=== PATIENT | female | born 1945 | race Caucasian/White ===

== ENCOUNTER 2019-02-08 06:54 | Day surgery (SDC) | payer MEDICARE ==
[~2019-02-08 06:54] MED LIST: Acetaminophen TAB* 325 MG PO PRN; Buffered Lidocaine 1% SYRIN* 1 ML/SYRINGE INTRADERM ONE
[2019-02-08] MEDS ORDERED: Midazolam* 1 MG/ML 2 ML VIAL (2 MG) ONE (08:09)
--- NOTE | 2019-02-08 09:47 | OP ---
DATE OF OPERATION/DATE OF DICTATION: 02/08/2019 - [facility] DATE OF : 1945. SURGEON: Dr. Jose L Rubio. HOUSECLEANER: None. ANESTHESIA: Topical with intravenous sedation. PRE-OP DIAGNOSIS: Cataract, right eye. POST-OP DIAGNOSIS: Cataract, right eye. OPERATIVE PROCEDURE: Phacoemulsification and cataract extraction with posterior chamber intraocular lens implant, right eye. COMPLICATIONS: None. BLOOD LOSS: None. DESCRIPTION OF PROCEDURE: The patient was brought to the operating room and received a small amount of intravenous sedation. A drop of Tetracaine was placed in her right eye. She was prepped and draped in the usual sterile fashion for ophthalmic surgery and attention was directed to the right eye where a speculum was placed. A paracentesis was created at the 11 o'clock position and 0.1 cc of 1 percent preservative-free Lidocaine was injected into the anterior chamber followed by DisCoVisc. The eye was digitally stabilized while a 2.75 mm keratome was used to create a triplanar clear corneal incision at the 9 o'clock position. A continuous curvilinear capsulorrhexis was created with a cystotome and Utrata forceps. BSS on a cannula was used to hydrodissect the lens from the capsule. Phacoemulsification was performed in a divide-and- conquer technique to create four fragments which were removed. Residual cortical material was removed with irrigation and aspiration. DisCoVisc was used to inflate the capsular bag and an AUOOTO 24.0 diopter lens was folded and inserted into the capsular bag. DisCoVisc was removed using irrigation and aspiration. BSS on a cannula was used to hydrate the corneal stroma and seal the wound. At the end of the case the pupil was round and the lens was centered. The eye was of normal pressure and the wound was water tight. The speculum was removed and topical Maxitrol ointment was placed on the surface of the eye. The eye was closed, patched and shielded and the patient was sent to the recovery room in stable condition with post operative instructions and follow-up appointment given. [id number] #: [id number] MTDD
[2019-02-08 11:39] VITALS: BP 100/52
[2019-02-08] MEDS ORDERED: Lidocaine 1%* 5 ML VIAL ONE (13:53)
[2019-02-08] MEDS ORDERED: Phenylephrine OPHTH SOL 2.5%* 2 ML ONE (13:53)
[2019-02-08] MEDS ORDERED: Tetracaine 0.5% OPTH.SOL 4 ML* 1 DROP BTL ONE (13:53)
[2019-02-08] MEDS ORDERED: Tropicamide 1% OPTH.SOL* BTL ONE (13:53)
[2019-02-08] MEDS ORDERED: Ketorolac 0.5% OPHTH (NF) 0.5 % 5 ML BTL ONE (13:53)
[2019-02-08] MEDS ORDERED: Neomycin/Polymy/Dex OPHTH.OIN* 3.5 GM ONE (13:53)
[2019-02-08] MEDS ORDERED: Cyclopentolate 1% OPTH.SOL* 2 ML BTL ONE (13:53)
== END 2019-02-08 08:42 | disposition home or self-care (01) ==
LOC: OREAST 06:54
PROVIDERS: ATTEND Ophthalmology
DX: H25.12 Age-related nuclear cataract, left eye (principal); E11.8 Type 2 diabetes mellitus with unspecified complications; Z79.4 Long term (current) use of insulin; M06.9 Rheumatoid arthritis, unspecified; C95.10 Chronic leukemia of unspecified cell type not having achieved remission; N18.3 Chronic kidney disease, stage 3 (moderate); I12.9 Hypertensive chronic kidney disease with stage 1 through stage 4 chronic kidney disease, or unspecified chronic kidney disease; E03.9 Hypothyroidism, unspecified
CPT/HCPCS: A9270-GY; J2250; V2632

== ENCOUNTER 2019-02-15 10:42 | Day surgery (SDC) | payer MEDICARE ==
[2019-02-15] MEDS ORDERED: fentaNYL* 50 MCG/ML 2 ML VIAL (100 MCG VIAL) ONE (12:27)
[2019-02-15] MEDS ORDERED: Midazolam* 1 MG/ML 2 ML VIAL (2 MG) ONE (12:27)
[2019-02-15 13:25] VITALS: BP 101/69
[2019-02-15] MEDS ORDERED: Cyclopentolate 1% OPTH.SOL* 2 ML BTL ONE (13:25)
[2019-02-15] MEDS ORDERED: Tetracaine 0.5% OPTH.SOL 4 ML* 1 DROP BTL ONE (13:25)
[2019-02-15] MEDS ORDERED: Phenylephrine OPHTH SOL 2.5%* 2 ML ONE (13:25)
[2019-02-15] MEDS ORDERED: Lidocaine 1%* 5 ML VIAL ONE (13:25)
[2019-02-15] MEDS ORDERED: Neomycin/Polymy/Dex OPHTH.OIN* 3.5 GM ONE (13:25)
[2019-02-15] MEDS ORDERED: Tropicamide 1% OPTH.SOL* BTL ONE (13:25)
[2019-02-15] MEDS ORDERED: Ketorolac 0.5% OPHTH (NF) 0.5 % 5 ML BTL ONE (13:25)
--- NOTE | 2019-02-15 16:21 | OP ---
DATE OF OPERATION: 02/15/19 [facility] DATE OF : [birth year] SURGEON: Dr. Jose L Rubio. RESEARCH INVESTIGATOR: None. ANESTHESIA: Topical with intravenous sedation. PRE-OP DIAGNOSIS: Cataract, right eye. POST-OP DIAGNOSIS: Cataract, right eye. OPERATIVE PROCEDURE: Phacoemulsification and cataract extraction with posterior chamber intraocular lens implant, right eye. COMPLICATIONS: None. BLOOD LOSS: None. DESCRIPTION OF PROCEDURE: The patient was brought to the operating room and received a small amount of intravenous sedation. A drop of Tetracaine was placed in her right eye. She was prepped and draped in the usual sterile fashion for ophthalmic surgery and attention was directed to the right eye where a speculum was placed. A paracentesis was created at the 11 o'clock position and 0.1 cc of 1 percent preservative-free Lidocaine was injected into the anterior chamber followed by DisCoVisc. The eye was digitally stabilized while a 2.75 mm keratome was used to create a triplanar clear corneal incision at the 9 o'clock position. A continuous curvilinear capsulorrhexis was created with a cystotome and Utrata forceps. BSS on a cannula was used to hydrodissect the lens from the capsule. Phacoemulsification was performed in a divide-and- conquer technique to create four fragments which were removed. Residual cortical material was removed with irrigation and aspiration. DisCoVisc was used to inflate the capsular bag and an AU00T0 24.0 diopter lens was folded and inserted into the capsular bag. DisCoVisc was removed using irrigation and aspiration. BSS on a cannula was used to hydrate the corneal stroma and seal the wound. At the end of the case the pupil was round and the lens was centered. The eye was of normal pressure and the wound was water tight. The speculum was removed and topical Maxitrol ointment was placed on the surface of the eye. The eye was closed, patched and shielded and the patient was sent to the recovery room in stable condition with post operative instructions and follow-up appointment given. [id number] #: [id number] MTDGabriel
== END 2019-02-15 13:34 | disposition home or self-care (01) ==
LOC: OREAST 10:42
PROVIDERS: ATTEND Ophthalmology
DX: H25.11 Age-related nuclear cataract, right eye (principal); E11.9 Type 2 diabetes mellitus without complications; Z79.4 Long term (current) use of insulin; I10 Essential (primary) hypertension; M06.9 Rheumatoid arthritis, unspecified; C92.11 Chronic myeloid leukemia, BCR/ABL-positive, in remission
CPT/HCPCS: A9270-GY; J2250; J3010; V2632

== ENCOUNTER 2019-05-03 10:52 | Observation (INO) | payer MEDICARE ==
--- OUTSIDE RECORDS SUMMARY | 2019-05-03 11:10 | XMS REPORT | Continuity of Care Document ---
:1945 External Reference #:[id number] Author Name Ernesto Agustin, OD Address [address] [place] [address] Care Team Providers Name Role Phone Liborio Torres DO Care Team Information Branch Manager Unavailable Liborio Torres DO Primary Care Physician Unavailable Payers Date Identification Numbers Payment Provider Subscriber Policy Number: [id number] BS Medicare Felicitas Martinez PayID: [id number] [address] [address] [place] [address] Problems Active Problems Provider Date Type 2 diabetes mellitus Onset: 03/21/2015 Hypertensive retinopathy Ernesto Zaman O.D. Onset: 03/21/2015 Presbyopia Ernesto Zaman O.D. Onset: 03/21/2015 Nuclear senile cataract Ernesto Zaman O.D. Onset: 03/21/2015 Retinal drusen Ernesto Zaman O.D. Onset: 03/21/2015 Taking medication Ernesto Zaman O.D. Onset: 03/21/2015 Family History Date Family Member(s) Observation Comments General Glasses Father Cataract Father due to Natural Causes () Father Diabetes Mother Cataract Mother due to Lung Cancer () Mother Arthritis Mother Cancer Mother Diabetes Social History Type Date Description Comments Sex Unknown ETOH Use Never used alcohol Tobacco Use Start: Unknown Patient has never smoked Smoking Status Reviewed: 04/11/19 Patient has never smoked Allergies, Adverse Reactions, Alerts Description No Known Drug Allergies Medications Active Medications SIG Qnty Indications Ordering Date Provider Ketorolac Tromethamine 1 drop both eyes 10ml Ernesto Agustin, 04/11/2019 0.5% tid x 3 weeks OD Solution Prednisolone Acetate 1 drop tid OU x 3 10ml Ernesto Agustin, 04/11/2019 1% weeks, then taper OD Suspension as directed Fluorometholone 1gtt three times 10ml Ernesto Agustin, 03/25/2019 0.1% a day both eyes x OD Suspension 1 week, then twice per day x 1 week Lantus Solostar Unknown 100Unit/ML Solution Pen-Inject Humalog Kwikpen Unknown 100Unit/ML Solution Pen-Inject Levothyroxine Sodium Unknown 75mcg Tablets Furosemide Unknown 40mg Tablets Folic Acid Unknown 1mg Tablets Fluoxetine HCL Unknown 20mg Capsules Clonidine HCL Unknown 0.3mg Tablets Atorvastatin Calcium Unknown 20mg Tablets Gleevec Unknown 400mg Tablets Amlodipine Besylate Unknown 10mg Tablets History Medications Vigamox 1 drop left eye 3ml Jose L Rubio, 01/26/2019 - 0.5% Solution four times a M.D. 02/22/2019 day, start drops morning of surgery Ketorolac Tromethamine 1 drops left eye 5ml Jose L Rubio, 01/26/2019 - 0.5% twice a day M.D. 03/25/2019 Solution Pred Forte 1 drops left eye 10ml Jose L Rubio, 01/26/2019 - 1% Suspension four times a day M.D. 03/25/2019 Vigamox 1 drop right eye 3ml Jose L Rubio, 01/26/2019 - 0.5% Solution four times a M.D. 02/22/2019 day, start drops the morning of surgery Ketorolac Tromethamine 1 drops right 5ml Jose L Rubio, 01/26/2019 - 0.5% eye twice a day M.D. 03/25/2019 Solution Pred Forte 1 drops right 10ml Jose L Rubio, 01/26/2019 - 1% Suspension eye four times a M.D. 03/25/2019 day Hydroxychloroquine Sulfate Unknown - 200mg 12/30/2018 Tablets Methotrexate Unknown - 2.5mg Tablets 01/17/2019 Vital Signs Date Vital Result Comment 04/11/2019 11:47am Intraocular Pressure Right Eye 18 mmHg Intraocular Pressure Left Eye 16 mmHg 03/25/2019 11:08am Intraocular Pressure Right Eye 18 mmHg Intraocular Pressure Left Eye 18 mmHg 02/22/2019 8:42am Intraocular Pressure Right Eye 18 mmHg Intraocular Pressure Left Eye 18 mmHg 2019 9:48am Intraocular Pressure Right Eye 18 mmHg Intraocular Pressure Left Eye 17 mmHg 02/09/2019 10:00am Intraocular Pressure Left Eye 18 mmHg 01/17/2019 8:44am Intraocular Pressure Right Eye 16 mmHg Intraocular Pressure Left Eye 16 mmHg 12/30/2018 8:55am Intraocular Pressure Right Eye 16 mmHg Intraocular Pressure Left Eye 16 mmHg 03/21/2015 9:55am Intraocular Pressure Right Eye 18 mmHg Intraocular Pressure Left Eye 18 mmHg Results Test Date Facility Test Result H/L Range Note Laboratory test 02/15/2019 [facility] Point of Care 155 mg/dL High 70-100 [address] [address] [phone] Laboratory test 02/08/2019 [facility] Point of Care 113 mg/dL High 70-100 [address] [place] [address] [phone] 1 Supply Chain Procurement Manager: [id number] Supply Chain Procurement Manager: [id number] Procedures Date Code Description Status 02/15/2019 72749 Extracapsular Cataract Extraction W/Intraocular Lens Completed 02/08/2019 41149 Extracapsular Cataract Extraction W/Intraocular Lens Completed 01/17/2019 99423 Ophthalmic Biometry By Partial Coherence Interferometry Completed W/Intra 01/17/2019 51859 Eye Exam Est Intermediate Completed 12/30/2018 75659 Oct Retina Completed 12/30/2018 41073 Eye Exam New Comprehensive Completed 03/21/2015 80796 Fundus Photography W/Interpretation & Report Completed 03/21/2015 85967 Ophthalmoscopy Initial Completed 03/21/2015 41545 Refraction Completed 03/21/2015 75596 Eye Exam New Comprehensive Completed Plan of Treatment Future Appointment(s):05/03/2019 8:30 am - Ernesto Agustin, OD at [facility] Hszckv5505/2019 - Ernesto Agustin, [id number] Cystoid macular edema following cataract surgery, [id number] Other chronic allergic conjunctivitisFollow up:3 weeks mac OCT, sooner PRN
--- OUTSIDE RECORDS SUMMARY | 2019-05-03 11:10 | XMS REPORT | Continuity of Care Document ---
:1945 External Reference #:[id number] Author Name Ernesto Agustin, OD Address [address] [place] [address] Care Team Providers Name Role Phone Liborio Torres DO Care Team Information Technical Stenographer Unavailable Liborio Torres DO Primary Care Physician Unavailable Payers Date Identification Numbers Payment Provider Subscriber Policy Number: [id number] BS Medicare Felicitas Martinez PayID: [id number] [address] [address] [place] [address] Problems Active Problems Provider Date Type 2 [...] Patient has never smoked Smoking Status Reviewed: 05/02/19 Patient has never smoked Allergies, Adverse Reactions, Alerts Description No Known Drug Allergies Medications Active Medications SIG Qnty Indications Ordering Provider Date Ketorolac Tromethamine 1 drop both eyes 10ml Ernesto Agustin, OD 04/11/2019 0.5% tid x 3 weeks Solution Prednisolone Acetate 1 drop tid OU x 3 10ml Ernesto Agustin, OD 04/11/2019 1% weeks, then taper Suspension as directed Aracelis Tejeda Unknown 100Unit/ML Solution Pen-Inject Humalog Kwikpen Unknown 100Unit/ML Solution Pen-Inject Levothyroxine Sodium Unknown 75mcg Tablets Furosemide Unknown 40mg Tablets Folic Acid Unknown 1mg Tablets Fluoxetine HCL Unknown 20mg Capsules Clonidine HCL Unknown 0.3mg Tablets Atorvastatin Calcium Unknown 20mg Tablets Gleevec Unknown 400mg Tablets Amlodipine Besylate Unknown 10mg Tablets History Medications Fluorometholone 1gtt three times 10ml Ernesto Agustin, 03/25/2019 - 0.1% Suspension a day both eyes OD 05/03/2019 x 1 week, then twice per day x 1 week Vigamox 1 drop left eye 3ml Jose [...] 01/17/2019 Vital Signs Date Vital Result Comment 05/03/2019 9:28am Intraocular Pressure Right Eye 16 mmHg Intraocular Pressure Left Eye 16 mmHg 04/11/2019 11:47am Intraocular Pressure Right Eye 18 [...] Result H/L Range Note Laboratory test 02/15/2019 [facility] Point of Care 155 mg/dL High 70-100 [address] [place] [address] [phone] Laboratory test 02/08/2019 [facility] Point of Care 113 mg/dL High 70-100 [address] [place] [address] [phone] 1 Editor Dictionary: [id number] 2 Editor Dictionary: [id number] Procedures Date Code Description Status 05/03/2019 77614 Oct, Optic Nerve Completed 05/03/2019 24799 Eye Exam Est Intermediate Completed 02/15/2019 56333 Extracapsular Cataract Extraction W/Intraocular Lens Completed 02/08/2019 06865 Extracapsular Cataract Extraction W/Intraocular Lens Completed 01/17/2019 58354 Ophthalmic Biometry By Partial Coherence Interferometry Completed W/Intra 01/17/2019 60147 Eye Exam Est Intermediate Completed 12/30/2018 76811 Oct Retina Completed 12/30/2018 46233 Eye Exam New Comprehensive Completed 03/21/2015 02793 Fundus Photography W/Interpretation & Report Completed 03/21/2015 73824 Ophthalmoscopy Initial Completed 03/21/2015 72793 Refraction Completed 03/21/2015 55322 Eye Exam New Comprehensive Completed
[2019-05-03 12:26] LABS: ABS Eosinophils 0.2 10^3/ul (0-0.6); ABS Lymphocytes 1.7 10^3/ul (1.0-4.8); ABS Monocytes 0.4 10^3/ul (0-0.8); ABS Neutrophils 4.5 10^3/ul (1.5-7.7); Eosinophil % 2.8 %; Hematocrit 37 % (35-47); Hemoglobin 12.3 g/dL (12.0-16.0); Lymphocyte % 25.3 %; Mean Corpuscular HGB Conc 33 g/dL (31-36); Mean Corpuscular Hemoglobin 30 pg (27-31); Mean Corpuscular Volume 89 fL (80-97); Mean Platelet Volume 7.7 fL (7.4-10.4); Platelet Count 200 10^3/uL (150-450); Red Blood Count 4.19 10^6 /uL (3.70-4.87); Red Cell Distribution Width 16 % (10-15); White Blood Count 6.9 10^3/uL (3.5-10.8)
[2019-05-03 12:48] LABS: Albumin 3.9 g/dL (3.2-5.2); Albumin/Globulin Ratio 1.4 (1-3); BUN/Creatinine Ratio 16.8 (8-20); EGFR African American 64.8 (>60); EGFR Non-African American 53.6 (>60); Globulin 2.7 g/dL (2-4); Total Bilirubin 0.8 mg/dL (0.2-1.0); Total Protein 6.6 g/dL (6.4-8.9)
[2019-05-03] MEDS ORDERED: Iodixanol* (CONTRAST) 320 MG/ML 100 ML SDV IV ONE (12:58)
--- NOTE | 2019-05-03 13:40 | ED ---
Progress - Progress Note Progress Note: Ultrasound guided IV placement at 13:36 20 gauge on right AC Course/Dx - Diagnoses Provider Diagnoses: Papilledema due to raised intracranial pressure Discharge - Sign-Out/Discharge Documenting (check all that apply): Patient Departure Patient Received Moderate/Deep Sedation with Procedure: No - Discharge Plan Condition: Stable Disposition: ADMITTED TO [facility] Referrals: No Primary Care Phys,NOPCP [Primary Care Provider] - - Billing Disposition and Condition Condition: STABLE Disposition: Admitted to [facility] - Attestation Statements Document Initiated by Scribe: Yes Documenting Scribe: Riri Santos Provider For Whom Kenrickibe is Documenting (Include Credential): Giselle Oliveira MD Scribe Attestation: Riri Traore, scribed for Giselle Oliveira MD on 05/03/19 at 1718. Scribe Documentation Reviewed: Yes Provider Attestation: The documentation as recorded by the Riri harry accurately reflects the service I personally performed and the decisions made by me, Giselle Oliveira MD Status of Scribe Document: Viewed
[2019-05-03 14:11] LABS: INR 0.97 (0.82-1.09)
--- NOTE | 2019-05-03 14:20 | ED ---
Throat Pain/Nasal Congestion - HPI Summary HPI Summary: Pt. is a 74 y.o female who was referred to the ER by Dr. Agustin, ophthalmology, for evaluation of papilledema. Pt. states she was seeing her eye doctor today for a follow up and was found to have an abnormal exam. Pt. denies vision change , headache, numbness, tingling, weakness. Pt. states she feels at her baseline without complaints. Past hx of HTN and DM. Sxs are moderate in severity. No current modifying factors. - History of Current Complaint Chief Complaint: EDEyeProblem Time Seen by Provider: 05/03/19 11:55 Hx Obtained From: Patient - Allergies/Home Medications Allergies/Adverse Reactions: Allergies Allergy/AdvReac Type Severity Reaction Status Date / Time No Known Allergies Allergy Verified 05/03/19 11:03 PMH/Surg Hx/FS Hx/Imm Hx Previously Healthy: Yes Endocrine/Hematology History: Reports: Hx Diabetes - -TYPE II-ON INSULIN FOR, Hx Sickle Cell Disease - CML, Hx Thyroid Disease - HYPOTHYROID Cardiovascular History: Reports: Hx Hypertension - ON MEDICATION FOR, Other Cardiovascular Problems/Disorders - RECENT COLON SURGERY- REPORTS WORKUP DONE THROUGH [place] Respiratory History: Denies: Other Respiratory Problems/Disorders GI History: Reports: Other GI Disorders - RECENT COLON SURGERY-FOR PRECANCEROUS POLYPS History: Denies: Hx Renal Disease, Other Problems/Disorders Musculoskeletal History: Reports: Hx Arthritis - HIPS AND SHOULDERS Denies: Other Musculoskeletal History Sensory History: Reports: Hx Cataracts - BILATERAL, Hx Contacts or Glasses - GLASSES Denies: Hx Hearing Aid Opthamlomology History: Reports: Hx Cataracts - BILATERAL, Hx Contacts or Glasses - GLASSES Neurological History: Denies: Other Neuro Impairments/Disorders - Cancer History Cancer Type, Location and Year: colon CA. right renal CA - Surgical History Surgery Procedure, Year, and Place: cholecystectomy. appendectomy. hysterectomy. cryo ablation-right kidney. COLON SURGERY FOR PRECANCEROUS [id number]. THYROID SURGERY. TONSILLECTOMY A CHILD Hx Anesthesia Reactions: No - Immunization History Immunizations Up to Date: Yes Infectious Disease History: No Infectious Disease History: Denies: Traveled Outside the [place] in Last 30 Days - Family History Known Family History: Positive: Non-Contributory - Social History Occupation: Retired Lives: With Family Alcohol Use: None Substance Use Type: Reports: None Smoking Status (MU): Never Smoked Tobacco Have You Smoked in the Last Year: No Review of Systems Constitutional: Negative Negative: Fever, Chills Eyes: Negative Negative: Photophobia, Blurred Vision, Diplopia, Drainage, Erythema Cardiovascular: Negative Respiratory: Negative Gastrointestinal: Negative Neurological: Negative Negative: Headache, Weakness, Paresthesia, Numbness All Other Systems Reviewed And Are Negative: Yes Physical Exam Triage Information Reviewed: Yes Vital Signs On Initial Exam: Initial Vitals Temp Pulse Resp BP Pulse Ox 97.4 F 77 16 184/82 98 05/03/19 10:56 05/03/19 10:56 05/03/19 10:56 05/03/19 10:56 05/03/19 10:56 Vital Signs Reviewed: Yes Appearance: Positive: Well-Appearing - Pt. sitting up in bed in NAD. Pleasant. Family present. Skin: Positive: Warm, Dry Head/Face: Positive: Normal Head/Face Inspection Eyes: Positive: Normal, EOMI, DB, Other: - fundoscopic exam not completed Neck: Positive: Supple Respiratory/Lung Sounds: Positive: Clear to Auscultation, Breath Sounds Present Cardiovascular: Positive: Normal, RRR Musculoskeletal: Positive: Normal, Strength/ROM Intact Neurological: Positive: Normal, Alert, Oriented to Person Place, Time, CN Intact II-III Psychiatric: Positive: Affect/Mood Appropriate - Kimberley Coma Scale Best Eye Response: 4 - Spontaneous Best Motor Response: 6 - Obeys Commands Best Verbal Response: 5 - Oriented Coma Scale Total: 15 Diagnostics - Vital Signs Vital Signs Temp Pulse Resp BP Pulse Ox 05/03/19 14:00 65 160/90 97 05/03/19 13:57 66 176/86 95 05/03/19 13:42 69 176/86 98 05/03/19 13:00 65 99 05/03/19 12:30 166/77 05/03/19 12:02 73 161/97 100 05/03/19 12:01 72 97 05/03/19 11:48 73 97 05/03/19 10:56 97.4 F 77 16 184/82 98 - Laboratory Lab Results: Lab Results 05/03/19 05/03/19 05/03/19 Range/Units 12:17 12:17 13:35 WBC 6.9 (3.5-10.8) 10^3/uL RBC 4.19 (3.70-4.87) 10^6 /uL Hgb 12.3 (12.0-16.0) g/dL Hct 37 (35-47) % MCV 89 (80-97) fL MCH 30 (27-31) pg MCHC 33 (31-36) g/dL RDW 16 H (10-15) % Plt Count 200 (150-450) 10^3/uL MPV 7.7 (7.4-10.4) fL Neut % (Auto) 65.3 % Lymph % (Auto) 25.3 % [place] % (Auto) 6.1 % Eos % (Auto) 2.8 % Baso % (Auto) 0.5 % Absolute Neuts (auto) 4.5 (1.5-7.7) 10^3/ul Absolute Lymphs (auto) 1.7 (1.0-4.8) 10^3/ul Absolute Monos (auto) 0.4 (0-0.8) 10^3/ul Absolute Eos (auto) 0.2 (0-0.6) 10^3/ul Absolute Basos (auto) 0.0 (0-0.2) 10^3/ul Absolute Nucleated RBC 0.0 10^3/ul Nucleated RBC % 0.0 INR (Anticoag Therapy) 0.97 (0.82-1.09) APTT 32.0 (26.0-38.0) seconds Sodium 142 (135-145) mmol/L Potassium 4.0 (3.5-5.0) mmol/L Chloride 110 (101-111) mmol/L Carbon Dioxide 25 (22-32) mmol/L Anion Gap 7 (2-11) mmol/L BUN 17 (6-24) mg/dL Creatinine 1.01 H (0.51-0.95) mg/dL Est GFR ( Amer) 64.8 (>60) Est GFR (Non-Af Amer) 53.6 (>60) BUN/Creatinine Ratio 16.8 (8-20) Glucose 97 (70-100) mg/dL Calcium 9.0 (8.6-10.3) mg/dL Total Bilirubin 0.80 (0.2-1.0) mg/dL AST 18 (13-39) U/L ALT 15 (7-52) U/L Alkaline Phosphatase 102 (34-104) U/L Total Protein 6.6 (6.4-8.9) g/dL Albumin 3.9 (3.2-5.2) g/dL Globulin 2.7 (2-4) g/dL Albumin/Globulin Ratio 1.4 (1-3) Result Diagrams: 05/03/19 12:17 05/03/19 12:17 Lab Statement: Any lab studies that have been ordered have been reviewed, and results considered in the medical decision making process. EENT Course/Dx - Course Course Of Treatment: Patient presenting for evaluation of bilateral papilledema. Vital signs stable. Patient has no complaints. Ophthalmology wanted to rule out dural venous sinus thrombosis. I spoke with radiology who recommended CTV to rule this out. Basic laboratory studies are unremarkable. CTV and CT brain are negative for acute findings, reading per radiology. I spoke with on-call neurology, Dr. Wagner, who recommeds MRI brain to r/o mass as well as lumbar puncture with opening pressure. MRI unable to to perform test until 7. Hospitalist consulted for admission for further testing. I spoke with Dr. Angel, who will accept pt. to her service. - Diagnoses Provider Diagnoses: Papilledema due to raised intracranial pressure Discharge - Sign-Out/Discharge Documenting (check all that apply): Patient Departure Patient Received Moderate/Deep Sedation with Procedure: No - Discharge Plan Condition: Stable Disposition: ADMITTED TO [facility] Referrals: No Primary Care Phys,NOPCP [Primary Care Provider] - - Billing Disposition and Condition Condition: STABLE Disposition: Admitted to [facility] - Attestation Statements Provider Attestation: I have seen the patient with the LOPEZ and agree with the plan and documentation below except as noted: 74-year-old female sent in by human resource assistant w concern for bilateral papilledema. Plan for CTV and MRI
[2019-05-03] MEDS ORDERED: Dextrose 50% VIAL 50 ml IV PUSH PRN (17:02)
[2019-05-03] MEDS ORDERED: hydrALAZINE IV* 20 MG/ML VIAL IV SLOW PU PRN (17:17)
--- NOTE | 2019-05-03 18:56 | HP ---
CC: Dr. Torres * HISTORY AND PHYSICAL: DATE OF ADMISSION: 05/03/19 PRIMARY CARE PROVIDER: Dr. Torres. ATTENDING PHYSICIAN: Dr. Angel * (dictated by WARREN Gomez). CHIEF COMPLAINT: Papilledema. HISTORY OF PRESENT ILLNESS: Ms. Martinez is a 74-year-old female with past medical history of hypertension, diabetes, and obesity who presented to the ER today at the request of her kohinoor operator after having discovered bilateral papilledema. The patient was having a followup appointment for bilateral cataract surgery, which occurred approximately 2 months ago and kohinoor operator noted bilateral papilledema and sent the patient for further testing. The patient notes that she "can't see well up close," but notes that this has been occurring for years and there have been no recent vision changes. She notes that her long distance vision has improved with cataract surgery. She denies blurred vision, diplopia, and visual field deficits. She denies headache, nausea, vomiting, tinnitus, dizziness, lightheadedness, or any other vision changes. She has no complaints at this point. Review of systems is negative, except for exam finding of papilledema by ophthalmology. While in the ER, the patient received a full workup, which included blood work revealing a slightly elevated creatinine and elevated systolic blood pressure between 160 and 180. The patient notes she has not had her home medications at this point. Brain CT was within normal limits. Head CTA showed no thrombosis, symmetrical superior ophthalmic veins. The hospitalist team was asked to evaluate the patient for admission. PAST MEDICAL HISTORY: 1. Diabetes mellitus. 2. Hypertension. 3. Hyperlipidemia. 4. Hypothyroidism. 5. CML. 6. Obesity, BMI 41.6. 7. History of right renal cancer, status post cryoablation. 8. Rheumatoid arthritis. PAST SURGICAL HISTORY: Cholecystectomy; appendectomy; hysterectomy; right kidney cryoablation; partial thyroidectomy; ascending colon removal; precancerous polyp removal in 2007, the patient follows with Andrea; tonsillectomy. HOME MEDICATIONS: 1. Amlodipine 10 mg p.o. q.a.m. 2. Clonidine 0.3 mg p.o. b.i.d. 3. Insulin glargine 40 units subcu at bedtime. 4. Insulin lispro 20 units subcu t.i.d. 5. Levothyroxine 75 mcg p.o. q.a.m. DRUG ALLERGIES: No known drug allergies. FAMILY HISTORY: Mother with lung cancer, diabetes mellitus. Father with diabetes mellitus. Brother with lung cancer leading to mets. Maternal grandmother with colon cancer. Paternal grandmother with breast cancer. The patient states that most of her family has hypertension. The patient denies family history of heart disease or CVA. SOCIAL HISTORY: The patient denies current and former use of tobacco. She denies use of alcohol. She uses no other illicit drugs. 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 She lives with her . She has 3 children who no longer live with her. In the event that she is unable to make her own medical decisions, she has appointed her to be her surrogate decision maker. REVIEW OF SYSTEMS: A 10-point review of systems has been performed and all the pertinent positives and negatives are in the HPI. All other systems are negative. PHYSICAL EXAMINATION GENERAL: Ms. Martinez is a well-developed, well-nourished, obese older white woman who is sitting up in bed. She appears to be in no acute distress. She appears her stated age. She is cooperative, appropriate, and pleasant. VITAL SIGNS: Temperature 97.4 temporal, heart rate 69, oxygen saturation 96% on room air, blood pressure 184/72. HEENT: Visual taylor grossly intact. PERRL. EOMI. Nonicteric sclerae. Funduscopic exam was attempted, unable to visualize fundus. Hearing grossly intact. Oral mucous membranes are moist. There are no lesions. The pharynx is clear. RESPIRATORY: Symmetrical chest expansion without use of accessory muscles. Lungs are clear to auscultation bilaterally without rhonchi, wheezes, or rubs. There is no distal clubbing or cyanosis. CARDIOVASCULAR: Regular rate and rhythm with S1, S2 present without murmurs, rubs, clicks, or gallops. There is no JVD. Radial and pedal pulses are palpable. Bilateral lower extremity trace edema. ABDOMEN: Bowel sounds noted in all quadrants. The abdomen is obese, flat, and nontender to palpation. MUSCULOSKELETAL: Full range of motion without pain or deformities. NEURO: The patient is awake. She is alert and oriented x3. Cranial nerves are grossly intact. She is able to move all of her extremities with motor strength of 5/5 in bilateral upper and lower extremities. She has steady gait without impairments. MONIKA and Romberg are intact. DIAGNOSTIC STUDIES/LAB DATA: CBC without gross abnormality. CMP without gross abnormality, except for a creatinine slightly elevated at 1.01. Brain CT, impression: No evidence for acute intracranial abnormality. Head CTA, impression: No dural venous sinus thrombosis is identified. The superior ophthalmic veins are symmetric in caliber. ASSESSMENT AND PLAN: Ms. Martinez is a 74-year-old female with past medical history of hypertension, hyperlipidemia, diabetes, and obesity who presented to the ER today at the suggestion of her kohinoor operator due to bilateral papilledema. The patient will be admitted to observation for: 1. Bilateral papilledema. Thus far, the patient has a negative head CT, negative head CTA showing no thrombosis. This case was discussed with Neurology , who recommended MRI of the head for possible mass followed by lumbar puncture for opening pressures for pseudotumor cerebri. This is likely pseudopapilledema if both exams are within normal limits. She will be admitted observation and placed on tele. An MRI of the head has been ordered and will be performed approximately 7 p.m. tonight. If this is within normal limits and does not show a lesion or mass, a lumbar puncture will be ordered for the morning. Dr. Seth, anesthesiology, has been consulted and notified. The patient will be placed on schedule for the morning. 2. Diabetes mellitus. The patient will be continued on glargine 40 at bedtime. She will be started on lispro sliding scale. 3. Hypertension. The patient is noted to be hypertensive in the ER. She has not received her meds. She will continue her home amlodipine and receive a dose now. She will also continue her clonidine. Hydralazine has been ordered p.r.n. systolic blood pressure greater than 160. 4. Hyperlipidemia. Continue Lipitor 20. 5. Hypothyroidism. Continue levothyroxine. 6. Chronic myeloid leukemia. Continue Gleevec 400 daily. 7. FEN. The patient has been placed on heart-healthy, no caffeine, consistent carbohydrate diet. No IV fluids will be administered at this time. 8. DVT prophylaxis. According to the DVT Risk Assessment, the patient scores 3 , placing her at high risk. We will hold off on anticoagulation at this point as the patient is planned for a lumbar puncture in the morning. She will be placed on SCDs. 9. Code status. DNR/DNI. MOLST has been updated. TIME SPENT: Approximately 60 minutes were spent on this admission, greater than half that time was spent with the patient and her family members obtaining history, performing physical, and reviewing the plan of care. The case has been reviewed with my attending, Dr. Angel, who is in agreement with the plan of care. WARREN MOFFETT [id number]/[facility] #: [id number] [place]
[2019-05-03] MEDS ORDERED: Insulin GLARGINE(*) 1 UNITS UNIT SUBCUT SCH (21:00)
[2019-05-03] MEDS ORDERED: Atorvastatin* 20 MG TAB PO SCH (21:00)
[2019-05-03] MEDS: amLODIPine TAB* 5 MG PO SCH (21:24)
[2019-05-03] MEDS: cloNIDine TAB* 0.1 MG PO SCH (21:25)
[2019-05-03] MEDS: Insulin LISPRO* 1 UNITS UNIT SUBCUT SCH (21:26)
[2019-05-04] MEDS ORDERED: Levothyroxine TAB* 75 MCG TAB PO SCH (06:00)
[2019-05-04] MEDS: Insulin LISPRO* 1 UNITS UNIT SUBCUT SCH ×3 (07:34→18:39)
[2019-05-04] MEDS ORDERED: IMATINIB 400 MG PO SCH (09:00)
[2019-05-04 12:30] LABS: Magnesium 1.8 mg/dL (1.9-2.7)
[2019-05-04 12:32] LABS: TSH (Thyroid Stimulating Horm) 3.5 mcIU/mL (0.34-5.60)
[2019-05-04] MEDS: amLODIPine TAB* 5 MG PO SCH (13:51)
[2019-05-04] MEDS: cloNIDine TAB* 0.1 MG PO SCH (13:51)
[2019-05-04 16:13] VITALS: BP 155/56
--- NOTE | 2019-05-04 20:03 | CONS ---
NEUROLOGY CONSULTATION NOTE: DATE OF CONSULT: 05/04/19 LOCATION: She is an inpatient in room 445. REFERRING PROVIDER: WARREN Gomez CHIEF COMPLAINT: Papilledema. HISTORY OF PRESENT ILLNESS: Felicitas Martinez is a 74-year-old woman who was referred to the emergency room yesterday by her supervisor heading, Dr. Grimes for a finding of papilledema. She had cataracts extracted apparently a few weeks ago and she was getting a followup exam. It was at that point that papilledema was identified. She was referred to the emergency room where she had a CT angiogram and venogram of the brain interpreted as normal. I was asked for general guidance by the physician itinerant teacher assistant in the emergency room and I recommended that the patient have an MRI of the brain, and if it is negative, to have a lumbar puncture. An MRI of the brain was performed late in the day yesterday and that was interpreted as normal. Reviewed the images and there may be some slight downward displacement of the cerebellar tonsils and a slightly empty sella, but there is certainly no masses or hydrocephalus. Subsequently, she had a lumbar puncture this morning that I was informed verbally that it was 320. Felicitas does not note any change in her vision recently, no double vision, no eye pain. She does not have any headache. PAST MEDICAL HISTORY: Notable for CML, under control on Gleevec. She was on it for years and appeared to be in remission, so it was stopped, but then she had a recurrence. She has been back on it now for a few months. She has some history of diabetes, hypertension, hyperlipidemia, hypothyroidism, renal cancer , status post cryoablation, rheumatoid arthritis. MEDICATIONS: Medications at home consist of: 1. Amlodipine 10 mg p.o. every day. 2. Clonidine 0.3 mg p.o. b.i.d. 3. Insulin. 4. Levothyroxine 75 mcg p.o. q.a.m. ALLERGIES: She does not have any drug allergies. REVIEW OF SYSTEMS: Negative for double vision, headaches, head trauma. Weight has been stable to the best of her knowledge. She has not had any recent fevers or chills. She has not noticed any change in her vision recently. PHYSICAL EXAM: On examination, she is morbidly obese. Temperature 97.1, blood pressure running about 150/60 to 90 diastolic, heart rate is in the 70s and regular. Heart tones are normal. Neck is supple. Neurologic Exam: Pupils react equally from about 3 to 2 mm. There is no afferent pupillary defect. Eye movements are normal. Visual taylor are full to confrontation. She has bilateral papilledema with no optic cups and I do not see any hemorrhages either. Margins of the disc are blurred diffusely in both sides. Facial musculature is symmetric. Facial sensation is intact. She is alert and oriented and an excellent detailed historian. Memory is intact and language is fluent. She has adequate attention, concentration, and fund of knowledge. DIAGNOSTIC STUDIES/LAB DATA: Additional laboratory studies include a normal CBC , normal INR and PTT, normal chemistry profile other than creatinine of 1.01 and a glucose yesterday of 97. TSH is normal at 3.5. IMPRESSION AND PLAN: Impression is that of increased intracranial pressure, I suspect Gleevec might be the culprit. In reading side effects, it can cause cerebral edema. She has asymptomatic papilledema, but there is a risk of permanent visual loss in untreated papilledema. Therefore, I think it is important to treat it and get the pressure down and normalize her funduscopic exam. Anila Lamine has spoken with her oncologist and given the go ahead to stop Gleevec. I would recommend starting acetazolamide 250 mg p.o. twice per day until her funduscopic exam normalizes. At that point, the acetazolamide can be tapered off, and if the increased intracranial pressure and papilledema does not recur, she could just be followed by her supervisor heading and oncologist as per their usual routine. I have explained this to the patient and her and they understand and are on line with the plan. [id number]/[facility] #: [id number] [facility]
--- NOTE | 2019-05-04 21:35 | PRO ---
DATE OF PROCEDURE: 05/04/19 - ROOM #445 HISTORY: I was consulted for a lumbar puncture for diagnostics on this patient by the hospitalist service, Mel Raman. In short, the patient is a 74- year-old woman who presents for evaluation of papilledema which was discovered incidentally on a postop visit after having cataract surgery. She notes no other symptoms and is otherwise feeling well. MRI of the brain showed no space occupying lesions. She is not currently on any anticoagulation and was not previously. She notes no history of coagulopathies. She does have a prior lumbar fusion at L4-5. Her past medical history is significant for anxiety, hypertension, hypothyroidism, and diabetes. Her blood work from 05/03/19 shows mild hypomagnesemia and she was mildly hypoglycemic due to being n.p.o. Otherwise, her coags are within normal limits. She does not have any allergies to medications. PRE-PROCEDURE DIAGNOSIS: Papilledema. POST-PROCEDURE DIAGNOSIS: Papilledema. ESTIMATED BLOOD LOSS: Minimal. PROCEDURE: Lumbar puncture. PREPROCEDURE VITALS: Temperature 36.3, pulse 67, respiratory rate 12, oxygen saturation 99% on room air, blood pressure 142/50. PROCEDURE SUMMARY: The risks and benefits of the procedure were discussed with the patient who verbalized understanding and elected to proceed. The risks including, but not limited to bleeding, bruising, infection, nerve injury were discussed with the patient in addition to headache. The patient verbalized understanding. She was placed in a left lateral recumbent position. Her back was prepped with chlorhexidine skin prep and draped in the usual sterile manner. A time-out was performed. The L3-4 interspace was approximated. 5 cc of 1% lidocaine plain was used to anesthetize the skin and subcutaneous tissues. Two needle passes were used. A 20-gauge introducer along with a 25- gauge Dago needle was used to access the intrathecal space. Crystal clear free-flowing CSF was seen and measured with opening pressure to be 31.4 cm of water. There were no paresthesias and there was no neuraxial heme. Subsequently, a total of 5 cc of crystal clear CSF was removed from the intrathecal space and sent to the lab for further testing as necessary. The patient tolerated the procedure well with only one short transient paresthesia which quickly resolved with no interventions. There were no additional focal neurological deficits or paraesthesias. Her back was cleansed and dressed with a Band-Aid and she was advised to avoid submersing her lumbar puncture site in water for the next 24 hours. She was given the usual discharge instructions and her nurse was advised similarly as well. Thank you for allowing me to participate in the care of your patient, please do not hesitate to call with further questions. [id number]/[facility] #: [id number] [place]
--- NOTE | 2019-05-05 01:30 | DS ---
CC: Dr. Torres; Dr. Agustin; Dr. Casanova * DISCHARGE SUMMARY: DATE OF ADMISSION: 05/03/19 DATE OF DISCHARGE: 05/04/19 PRIMARY CARE PROVIDER: Dr. Torres. RACING CAR DRIVER: Dr. Agustin. ONCOLOGIST: Dr. Casanova. ATTENDING PHYSICIAN: Dr. Angel * (dictated by WARREN Gomez). PRIMARY DIAGNOSES: 1. Bilateral papilledema. 2. Pseudotumor cerebri, possibly due to medication Gleevec. SECONDARY DIAGNOSES: 1. Diabetes mellitus. 2. Hypertension. 3. Hyperlipidemia. 4. Hypothyroidism. 5. Chronic myelogenous leukemia. 6. Rheumatoid arthritis. 7. Obesity, BMI 41.6. 8. History of renal cancer, status post cryoablation. STUDIES WHILE IN THE HOSPITAL: 1. Head CT, impression: No evidence for acute intracranial abnormality. 2. Head CTA, impression: No dural venous sinus thrombosis is identified. The superior ophthalmic veins are symmetric in caliber. 3. Brain MRI, impression: No acute intracranial abnormality. 4. MRI orbit, impression: Mild increased signal involving the extraocular muscles on the fat-suppressed images, symmetric. Extraocular muscles are only mildly prominent, however, given proptosis, question thyroid ophthalmopathy. Infectious/inflammatory or infiltrative neoplastic process not excluded, followup recommended. DISCHARGE MEDICATIONS: Home medications: 1. Amlodipine 10 mg p.o. q.a.m. 2. Clonidine 0.3 mg p.o. b.i.d. 3. Insulin glargine 40 units subcu at bedtime. 4. Insulin lispro 20 units subcu t.i.d. 5. Levothyroxine 75 mcg p.o. q.a.m. Discontinued medications: Gleevec. New home medications: 1. Acetazolamide 250 mg p.o. b.i.d. HISTORY OF PRESENT ILLNESS/HOSPITAL COURSE: Ms. Martinez is a 74-year-old female with past medical history of diabetes, hypertension, hyperlipidemia, hypothyroid , CML, who presented to the ER yesterday at the suggestion of her intake clerk due to bilateral papilledema. Please see the history and physical dictated on 05/03/19 by WARREN Gomez for full and complete details, but in short, she presented due to bilateral papilledema with no other complaints including no headache or vision changes, visual field defects, nausea , vomiting, tinnitus, dizziness, lightheadedness. She received a workup to determine the cause of papilledema. Brain CT was within normal limits. Head CTA showed no thrombus. Brain MRI was benign. Orbital MRI showed mildly prominent extraocular muscles, but no lesions. Lumbar puncture was ordered to assess for increased intracranial pressure. Opening pressure of lumbar puncture was 31.4, which is elevated. Neurology was consulted at this point. It is likely that the patient has pseudotumor cerebri. She will be placed on Diamox at discharge. Her oncologist, Dr. Casanova, was called to discuss the possibility that the Gleevec could be the cause of this increased intracranial pressure. She recommended discontinuing the medication with close followup to Oncology; her office will call the patient and schedule an appointment. On the day of discharge, the patient denies headache, vision changes including diplopia , scotoma, blurred vision. She denies tinnitus, nausea, or vomiting. She denies chest pain, shortness of breath, cough, fever, abdominal pain, nausea, vomiting, diarrhea, or constipation. Ms. Martinez is stable for discharge to home. PHYSICAL EXAMINATION: Vital signs are temperature 97.1 oral, heart rate 74, respiratory rate 17, oxygen saturation 97%, blood pressure 155/56. General: Ms. Martinez is a well-developed, well-nourished, obese, older white woman, who is sitting at the edge of her bed. She is in no acute distress. She appears comfortable. HEENT: Visual taylor are grossly intact. PERRL. EOMI. Nonicteric sclerae. Hearing grossly intact. Oral mucous membranes are moist without lesions. Cardiovascular: Regular rate and rhythm with S1, S2 present without murmurs, rubs, clicks, or gallops. There is no JVD. Radial pulses palpable. There is trace lower extremity edema. Pulmonary: Symmetrical chest expansion without use of accessory muscles. Lungs are clear to auscultation bilaterally without rhonchi, wheezes, or rubs. No digital clubbing or cyanosis. Abdomen: Obese. Bowel sounds in all quadrants. The abdomen is soft without tenderness to palpation. Musculoskeletal: The patient is limited by rheumatoid arthritis but is able to move all of her extremities. Neuro: The patient is awake. She is alert and oriented x3. Cranial nerves grossly intact. She is able to move all of her extremities with a motor strength of 5/ 5 in bilateral upper and lower extremities. DISCHARGE PLAN: Ms. Martinez is stable for discharge to home. ACTIVITY: Avoid strenuous activity and heavy lifting for the remainder of the day due to lumbar puncture. DIET: Resume home diet. MEDICATIONS: As above. 1. Stop Gleevec. 2. Start Diamox 250 mg b.i.d. EDUCATION: Please see instructions from pain clinic for status post lumbar puncture management. 1. Follow up with primary care provider in 4 to 7 days. 2. Follow up with intake clerk in 1 to 2 weeks to reassess papilledema. 3. Follow up with oncologist, Dr. Casanova, in approximately 2 weeks. Her office will call with appointment date and time. 4. Notify pain clinic if signs of infection, worsening numbness, tingling, weakness, or severe pain. Call if you develops severe headache that worsens with position changes and is not relieved by usual medications. 5. To decrease spinal headache, drink plenty of fluids including caffeinated beverages. 6. Return to the ER or nearest hospital if you experience headache, vision changes, chest pain/discomfort, shortness of breath, high fevers, chills, night sweats, dizziness, lightheadedness, loss of consciousness, or any other worrisome signs or symptoms. This is a summarized report of a complex medical history and hospital stay. For further details, please see the entire medical record. TIME SPENT: Approximately 40 minutes was spent on this discharge, greater than half that time was spent [id number] with the patient and her discussing discharge plans and instructions. WARREN MOFFETT [id number]/[facility] #: [id number] [place]
== END 2019-05-04 18:14 | disposition home or self-care (01) ==
LOC: ED 10:52 → MEDTELE 16:56
PROVIDERS: ADMIT Internal Medicine; ATTEND Internal Medicine
DX: H47.10 Unspecified papilledema (principal); G93.2 Benign intracranial hypertension; E11.9 Type 2 diabetes mellitus without complications; I10 Essential (primary) hypertension; E78.5 Hyperlipidemia, unspecified; C92.10 Chronic myeloid leukemia, BCR/ABL-positive, not having achieved remission; M06.9 Rheumatoid arthritis, unspecified; E66.9 Obesity, unspecified; Z68.41 Body mass index [BMI] 40.0-44.9, adult; D57.1 Sickle-cell disease without crisis; Z85.528 Personal history of other malignant neoplasm of kidney; Z79.899 Other long term (current) drug therapy; Z79.4 Long term (current) use of insulin
CPT/HCPCS: 36415; 62270; 70450; 70496; 70551; 80053; 83735; 84443; 85025; 85610; 85730; 99284; A9270-GY; G0378; Q9967

== ENCOUNTER 2024-04-29 06:05 | Observation (INO) ==
[~2024-04-29 06:05] MED LIST changes: -Acetaminophen TAB* 325 MG PO PRN; -Buffered Lidocaine 1% SYRIN* 1 ML/SYRINGE INTRADERM ONE; +Naloxone 0.4 mg VIAL 0.4 mg/ml 1 ml VIAL IV PRN; +Ondansetron 4 mg VIAL 2 MG/ML 2 ml VIAL IV PRN; +fentaNYL 100 mcg/2 ml 50 MCG/ML VIAL IV PRN
[2024-04-29] MEDS ORDERED: Propofol 10 MG/ML 20 ML BTL ONE (06:42)
[2024-04-29] MEDS ORDERED: fentaNYL 100 mcg/2 ml 50 MCG/ML VIAL ONE (06:43)
[2024-04-29] MEDS ORDERED: Midazolam 2 mg/2 ml VIAL 1 mg/ml 2 ml VIAL (2 mg) ONE (06:43)
[2024-04-29] MEDS ORDERED: Dexamethasone IV 4 MG/ML VIAL 1 ml VIAL ONE (06:43)
[2024-04-29] MEDS ORDERED: Rocuronium 50 mg VIAL 10 mg/ml 5 ml VIAL (50 mg) ONE (06:43)
[2024-04-29] MEDS ORDERED: Ondansetron 4 mg VIAL 2 MG/ML 2 ml VIAL ONE (06:43)
[2024-04-29] MEDS ORDERED: Lidocaine 2% PF 5 ML VIAL ONE (06:44)
[2024-04-29] MEDS: Lactated Ringers 1000 ml BAG 1,000 ML IV SCH (06:53)
[2024-04-29] MEDS: Buffered Lidocaine 1% SYRIN 1 ml INTRADERM ONE (06:53)
[2024-04-29] MEDS ORDERED: Lidocaine 1% w EPI 1:100,000 MDV 20 ML VIAL ONE (07:05)
[2024-04-29 07:08] LABS: Rapid COVID-19 Molecular Undetected (Undetected)
[2024-04-29] MEDS ORDERED: HYDROmorphone 0.5 MG/0.5 ML SYRINGE ONE (08:08)
[2024-04-29] MEDS ORDERED: fentaNYL 250 mcg/5 ml 50 MCG/ML 5 ml VIAL (250 MCG) ONE (08:17)
[2024-04-29] MEDS ORDERED: Propofol 10 mg/ml 100 ML BTL 2,000 MG/200 ML BTL ONE ×2 (08:24→09:35)
[2024-04-29] MEDS ORDERED: Phenylephrine IV 10 MG/ML 1 ml VIAL ONE (09:01)
[2024-04-29] MEDS ORDERED: Dexmedetomidine 200 mcg/2 ml 2 ml VIAL (200 mcg) ONE (09:15)
[2024-04-29] MEDS ORDERED: Insulin GLARGINE 100 un/ml 10 ml VIAL SUBCUT SCH (13:00)
[2024-04-29] MEDS: Enoxaparin 40 MG/0.4 ML SYR SUBCUT SCH (14:05)
[2024-04-29] MEDS ORDERED: Ondansetron 4 mg VIAL 2 MG/ML 2 ml VIAL IM PRN ×2 (15:14)
[2024-04-29] MEDS: IMATINIB 100 MG PO SCH (22:07)
[2024-04-29 22:09] LABS: Glucose Confirmatory 417 mg/dL (70-100)
[2024-04-29] MEDS: Insulin GLARGINE 100 un/ml 10 ml VIAL SUBCUT SCH (22:10)
[2024-04-29] MEDS ORDERED: Dextrose 50% Syringe 50 ml 25 GM/50 ML SYRINGE IV PUSH PRN (23:27)
[2024-04-30 05:57] LABS: ABS Lymphocytes 1.1 10^3/uL (1.0-4.8); ABS Monocytes 1.2 10^3/uL (0.0-0.9); ABS Neutrophils 13.1 10^3/uL (1.5-7.6); Hematocrit 33.6 % (35-45); Hemoglobin 11.1 g/dL (11.5-14.3); Mean Corpuscular Hemoglobin 32.4 pg (27-33); Mean Corpuscular Hgb Conc 33.1 g/dL (31-36); Mean Platelet Volume 7.7 fL (7.5-11.2); Platelet Count 307 10^3/uL (150-450); Red Blood Count 3.42 10^6/uL (3.63-4.92); Red Cell Distribution Width 15.5 % (12-17); White Blood Count 15.3 10^3/uL (3.8-11.8)
[2024-04-30] MEDS ORDERED: Fluoxetine 40 mg CAP (NF) PO SCH (09:00)
[2024-04-30 10:05] VITALS: BP 108/57
== END 2024-04-30 11:09 | disposition home or self-care (01) ==
LOC: OR 06:05 → SSU 06:05
PROVIDERS: ADMIT Otolaryngology; ATTEND Family Medicine